=== PATIENT | male | born 1990 | race American Indian/Alaskan Native ===

== ENCOUNTER 2018-09-02 16:16 | Emergency (ER) | payer OTHER ==
[2018-09-02 16:40] VITALS: BP 134/74
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
--- NOTE | 2018-09-02 17:35 | XRay Report ---
PROCEDURE: XR SPINE LUMBOSACRAL 2-3V TECHNIQUE: Frontal and lateral views lumbar spine and coned down lateral view lumbosacral junction HISTORY: low backj pain COMPARISONS: None FINDINGS: Bony alignment is normal. The vertebral heights and disc spaces are maintained. The paraspinous soft tissues are unremarkable. IMPRESSION: 1. Unremarkable study. If the patient remains symptomatic, MRI may be helpful. This document is electronically signed by Ai Montoya MD., September 02 2018 05:32:39 PM ET
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
== END 2018-09-02 20:06 | disposition home or self-care (01) ==
LOC: ED 16:16
DX: S39.012A Strain of muscle, fascia and tendon of lower back, initial encounter (principal); V89.2XXA Person injured in unspecified motor-vehicle accident, traffic, initial encounter; Y93.89 Activity, other specified; Y92.488 Other paved roadways as the place of occurrence of the external cause; Y99.8 Other external cause status
CPT/HCPCS: 72100; 99283